=== PATIENT | female | born 1965 | race Two or more races ===

== ENCOUNTER 2019-12-25 12:07 | Emergency (ER) | payer MEDICAID ==
[~2019-12-25] VITALS: Ht 149.9 cm; Wt 68.5 kg
[2019-12-25 12:24] VITALS: Ht 149.9 cm; Wt 68.5 kg
[2019-12-25 15:03] VITALS: BP 132/71
== END 2019-12-25 15:03 | disposition home or self-care (01) ==
LOC: ED 12:07
DX: S20.212A Contusion of left front wall of thorax, initial encounter (principal); J98.01 Acute bronchospasm; E11.9 Type 2 diabetes mellitus without complications; E66.9 Obesity, unspecified; Z68.30 Body mass index [BMI] 30.0-30.9, adult; Z98.890 Other specified postprocedural states; X58.XXXA Exposure to other specified factors, initial encounter; Y93.14 Activity, water aerobics and water exercise; Y92.89 Other specified places as the place of occurrence of the external cause; Y99.8 Other external cause status